=== PATIENT | male | born 1950 | race Caucasian/White ===

== ENCOUNTER → 2020-05-31 16:04 | Outpatient (CLI) | payer OTHER, SELFPAY ==
--- NOTE | ~2020-05-31 | XR_ITS ---
EXAMINATION: XR shoulder RT min 2V DATE: 05/31/2020 16:26 INDICATION: Right shoulder pain post lifting injury. TECHNIQUE: AP internally and externally rotated, AP oblique externally rotated and transscapular Y vi ews of the right shoulder were obtained. COMPARISON: None FINDINGS: Normal alignment. No fracture.Mild acromioclavicular osteoarthritis with inferior directed osteophyt e. Glenohumeral joint space is normal. 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 Soft tissues are unremarkable. Visualized portions of the lungs are clear. IMPRESSION: Mild right acromioclavicular osteoarthritis with inferiorly directed osteophyte. Reviewed, dictated and finalized at location A. IMPRESSION: Mild right acromioclavicular osteoarthritis with inferiorly directed osteophyte .
== END ==
PROVIDERS: PCP Internal Medicine; Visit Provider Internal Medicine
DX: M19.011 Primary osteoarthritis, right shoulder (principal)
CPT/HCPCS: 73030